=== PATIENT | male | born 1960 | race Caucasian/White ===

== ENCOUNTER 2017-07-26 06:28 | Day surgery (SDC) | payer OTHER ==
[~2017-07-26 06:28] MED LIST: BUSPAR PO; LIPITOR40 MG PO; LOSARTAN-HCTZ1 EAC2 PO; NEURONTIN300 MG PO; NORFLEX PO; RELAFEN PO; WELLBUTRIN XL300 MG PO
== END 2017-07-26 13:00 | disposition home or self-care (01) ==
LOC: CIR.AMB 06:28
DX: M75.112 Incomplete rotator cuff tear or rupture of left shoulder, not specified as traumatic (principal); M24.112 Other articular cartilage disorders, left shoulder; M19.012 Primary osteoarthritis, left shoulder

== ENCOUNTER 2017-10-06 13:25 | Emergency (ER) | payer OTHER ==
[~2017-10-06] VITALS: Ht 167.6 cm; Wt 85.7 kg
[2017-10-06] MEDS ORDERED: AVAPRO150 MG (13:36)
== END 2017-10-06 16:57 | disposition home or self-care (01) ==
LOC: ER 13:25
DX: R51 Headache (principal)